=== PATIENT | male | born 1965 | race Two or more races ===

== ENCOUNTER 2019-09-20 12:38 | Emergency (ER) | payer OTHER ==
[~2019-09-20] VITALS: Ht 175.3 cm; Wt 90.7 kg
--- NOTE | 2019-09-20 12:40 | NUR ---
PT [id number] FOR SYNCOPAL EPISODE AT CLINIC WHILE HAVING BLOOD DRAW AND VOMITING 3X PER PT, PT IS AAOX4, NOT IN RESPIRATORY DISTRESS, HOOKED TO MONITOR, KEPT RESTED AND COMFORTABLE, WILL CONTINUE TO MONITOR.
--- NOTE | 2019-09-20 12:50 | NUR ---
SEEN AND EXAMINED BY .
--- NOTE | 2019-09-20 13:00 | NUR ---
IV LINE ESTABLISHED BLOOD DRAWN AND SENT TO LAB.
[2019-09-20 13:08] LABS: BASOPHILS % (AUTO) 0.6 % (0.0-2.0); EOSINOPHILS % (AUTO) 0.8 % (0.0-6.0); HEMATOCRIT 50 % (39-51); LYMPHOCYTES # (AUTO) 4.4 /CMM (0.8-4.8); LYMPHOCYTES % (AUTO) 56.1 % (20.0-44.0); MEAN CORPUSCULAR HGB CONC 34 g/dl (31.0-36.0); MEAN CORPUSCULAR VOLUME 95 fL (80-96); MONOCYTES # (AUTO) 0.4 /CMM (0.1-1.30); MONOCYTES % (AUTO) 5.6 % (2.0-12.0); NEUTROPHILS # (AUTO) 2.9 /CMM (1.8-8.9); NEUTROPHILS % (AUTO) 36.9 % (43.0-81.0); PLATELET COUNT (AUTO) 165 /CMM (150-450); RED BLOOD CELL COUNT(AUTO) 5.24 MIL/uL (4.5-6.0); WHITE BLOOD COUNT (AUTO) 7.8 K/uL (4.3-11.0)
[2019-09-20 13:23] LABS: CARBON DIOXIDE 28 mmol/L (21-32); CHLORIDE 104 mmol/L (98-107); CREATININE 1.3 mg/dL (0.6-1.3); GLUCOSE 124 mg/dL (74-106); POTASSIUM 3.4 mmol/L (3.5-5.1); SODIUM SERUM 139 mmol/L (136-145); UREA NITROGEN, BLOOD 13 mg/dL (7-18)
[2019-09-20 13:28] LABS: ALANINE AMINOTRANSFERASE 36 U/L (12-78); ALBUMIN 4.3 g/dL (3.4-5.0); ALKALINE PHOSPHATASE 75 U/L (46-116); ASPARTATE AMINOTRANSFERASE 29 U/L (15-37); BILIRUBIN,DIRECT 0.1 mg/dL (0.0-0.2); BILIRUBIN,TOTAL 0.7 mg/dL (0.2-1.0); TOTAL PROTEIN, SERUM 7.6 g/dL (6.4-8.2)
[2019-09-20] MEDS ORDERED: IV NS 0.9% 1,000 ML BAG IV ONE ×2 (13:30)
[2019-09-20] MEDS ORDERED: NORMAL SALINE 10 ML DISP.SYRIN IV PRN (13:30)
[2019-09-20 14:48] VITALS: BP 123/82
--- NOTE | 2019-09-20 14:48 | NUR ---
IV removed. Catheter intact and site benign. Pressure and 4x4 applied to site. No bleeding noted. Patient discharged to home in stable condition. Written and verbal after care instructions given. Patient verbalizes understanding of instruction.
== END 2019-09-20 14:48 | disposition home or self-care (01) ==
LOC: ER 12:41
DX: R55 Syncope and collapse (principal); F17.200 Nicotine dependence, unspecified, uncomplicated
CPT/HCPCS: 36415; 71045; 80048; 80076; 84484; 85025; 85730; 93005; 96360; 99285; J7030